=== PATIENT | male | born 1965 | race Caucasian/White ===

== ENCOUNTER 2022-02-08 09:18 | Outpatient (CLI) | payer OTHER, SELFPAY ==
--- NOTE | 2022-02-08 09:15 | RT.EKG_ITS ---
APPROVED REPORT Exam: Resting ECG Reason for Exam: chest discomfort Patient Location: O HR:103 bpm ECG Measurements Heart Rate 103 AXIS AZ 141 P 76 QRSd 92 QRS 61 QT 321 T 10 QTc 420 Conclusion Sinus tachycardia...rate> 99 Left atrial enlargement...P, P'>60mS, <-0.15mV V1 RSR' in V1 or V2, normal variant
== END 2022-02-08 09:19 | disposition home or self-care (01) ==
LOC: DI.CM 09:18
PROVIDERS: Visit Provider Nurse Practitioner Family
DX: R07.89 Other chest pain (principal); R94.31 Abnormal electrocardiogram [ECG] [EKG]
CPT/HCPCS: 93010

== ENCOUNTER 2022-02-08 10:03 | Emergency (ER) | payer OTHER, SELFPAY ==
--- NOTE | 2022-02-08 10:00 | RT.EKG_ITS ---
APPROVED REPORT Exam: Resting ECG Reason for Exam: chest pain Patient Location: E HR:102 bpm ECG Measurements Heart Rate 102 AXIS OR 144 P 75 QRSd 91 QRS 64 QT 314 T 7 QTc 409 Conclusion Sinus tachycardia Probable left atrial enlargement Nonspecific ST changes
--- NOTE | 2022-02-08 10:00 | DI.RAD_ITS ---
Exam(s) XR PORTABLE CHEST AP EXAM: XR PORTABLE CHEST AP CLINICAL HISTORY: chest pain TECHNIQUE: 2D digital imaging was performed of the chest. One image was obtained. An AP view was ob tained. COMPARISON: No exams were available for comparison FINDINGS: MEDIASTINUM: Normal. HEART: Normal. PULMONARY VASCULATURE: Normal. LUNGS: Clear. PLEURAL SPACE: No pleural effusion or pneumothorax. BONE:Within normal limits for the patient's age. OTHER FINDINGS:Normal. IMPRESSION: No acute pulmonary findings. DATA REPOSITORY: RADIATION DOSE DELIVERED:
[2022-02-08 10:10] VITALS: BP 163/91; PULSE 101; RESP 16; TEMP 36.7; O2SAT 99
[2022-02-08 10:15] VITALS: RESP 16
[2022-02-08 10:30] LABS: Abs Immature Grans 0.05 10^3/uL (0.0-0.06); Absolute Basophil Count 0.04 10^3/uL (0.0-0.2); Absolute Eosinophil Count 0.21 10^3/uL (0.0-0.7); Absolute Lymphocyte Count 1.04 10^3/uL (1.2-3.4); Absolute Monocyte Count 0.76 10^3/uL (0.1-0.8); Absolute Neutrophil Count 4.54 10^3/uL (1.2-6.7); Basophils % 0.6; Eosinophils % 3.2; HCT 44.7 % (40.0-50.0); HGB 15.2 g/dL (13.5-17.5); Immature Grans % 0.8; Lymphocytes % 15.7; MCH 29.3 pg (27.0-33.0); MCV 86 fL (80-95); MPV 9.5 fL (8.0-11.0); Monocytes % 11.4; Neutrophils % 68.3; Platelet Count 214 10^3/uL (130-400); RBC 5.18 10^6/uL (4.36-5.78); RDW-SD 38.2 fL; WBC 6.64 10^3/uL (4.4-10.8)
[2022-02-08 10:50] LABS: ALT 38 U/L (16-63); AST 24 U/L (15-37); Albumin 4.1 g/dL (3.4-5.0); Alkaline Phosphatase 61 U/L (46-116); Anion Gap 6.1 mmol/L (3-11); BUN 18 mg/dL (7-18); Bilirubin, Total 1.6 mg/dL (0.2-1.0); CO2 28.9 mmol/L (21.0-32.0); Calcium 8.8 mg/dL (8.5-10.1); Chloride 106 mmol/L (98-107); Estimated GFR 87.24 (mL/min/1.73m2); Glucose 116 mg/dL (74-106); Potassium 3.9 mmol/L (3.5-5.1); Sodium 141 mmol/L (136-145); Total Protein 7.5 g/dL (6.4-8.2); Troponin I < 50 ng/L (<or=60)
[2022-02-08 11:25] LABS: D-Dimer 298 ng/mlFEU (<500)
--- NOTE | 2022-02-08 12:11 | ED.GENADUL_ITS ---
Discharge Plan Disposition Patient Disposition: Home Condition: Stable Discharge Details Clinical Impression: Atypical chest pain, History of shingles Primary Care Provider: Meghan,Local ED Provider: Cassy Osorio Home Meds and New Rx's Prescriptions: Continued atorvastatin [Lipitor] 20 mg tablet 20 mg PO DAILY triamcinolone acetonide 0.1 % cream 1 applic topical BID PRN (Reason: rash) Qty: 30 0RF Rx Instructions: apply to affected area right pickett 2x daily as needed valacyclovir 1 gram tablet 1,000 mg PO TID Qty: 21 0RF Rx Instructions: Take 1000mg every 8 hours x 7 days Discharge Instructions Instructions: Shingles (ED) Additional Instructions: Until lesions crusted over, they are contagious Please refer to enclosed packet information May take ibuprofen and Tylenol as needed for discomfort Follow-up with your doctor when you arrive home Return earlier should you have new or worsening complaints Medical Decision Making This 56-year-old gentleman with history of hyperlipidemia presents with chest pain for the past 10 days, constant in the past 5 Initially presented as a burning sensation to the left chest patient describes it as muscular pain EKG does not show evidence of acute abnormality, chest x-ray does not show evidence of acute abnormality Initial troponin negative Suspect thoracic shingles Patient is past the 72-hour moustapha, no indication for Valtrex at this time Low suspicion for cardiac etiology of patient's complaints Return precautions reviewed and patient expressed understanding Medical Records Medical records reviewed: Yes I reviewed the patient's medical records. Lab Data Lab results reviewed: Yes I reviewed the patient's lab results. HPI General Date/Time Provider Initiated Documentation: 02/08/22 10:04 . HPI Narrative: This 56-year-old male presents with report of chest pain for the past 10 days intermittently at first starting with a rash 5 days ago. He states that the pain feels like it is muscular in an aching sensation with numbness. Denies any shortness of breath, diaphoresis, nausea or vomiting. He denies any known early family history of coronary artery disease. He does not smoke, drink, or use any illicit drugs. He denies any associated pleuritic chest pain, calf pain or swelling. Related Data Home Medications Medication Instructions Recorded Confirmed atorvastatin 20 mg tablet (Lipitor) 20 mg PO DAILY 02/08/22 02/08/22 triamcinolone acetonide 0.1 % 1 applic topical BID PRN rash #30 02/08/22 02/08/22 topical cream grams valacyclovir 1 gram tablet 1,000 mg PO TID #21 tabs 02/08/22 02/08/22 Previous Rx's Medication Instructions Recorded triamcinolone acetonide 0.1 % 1 applic topical BID PRN rash #30 02/08/22 topical cream grams valacyclovir 1 gram tablet 1,000 mg PO TID #21 tabs 02/08/22 Allergies Allergy/AdvReac Type Severity Reaction Status Date / Time No Known Allergies Allergy Verified 02/08/22 10:17 General Stated Complaint: Chest Pain BLAS: 3 Review of Systems All systems reviewed & are unremarkable except as noted in HPI and below PFSH All Active Problems (Updated 02/08/22 @ 12:14 by HEIDI Murillo) Atypical chest pain (Acute) History of shingles (Acute) Social History Smoking/Tobacco Use Status: Never Smoking risk assessment performed?: Yes Alcohol Intake: never Drug use: Never Substance use type: does not use Do you feel safe at home: Yes Do you feel safe in your relationship?: Yes Exam Const General: cooperative, comfortable and no acute distress HENMT Head: normal to inspection Chest Chest/axillae images: 1. vesicles noted Resp Effort & Inspection: normal respiratory effort Auscultation: clear to auscultation bilaterally Cardio Rate: regular rate Rhythm: regular rhythm Other: distal pulses intact GI Inspection: normal to inspection Skin Rashes: rashes noted Neuro General: patient alert and patient oriented x3 Course Vital Signs Vital signs: Vital Signs Temperature 36.7 C 02/08/22 10:10 Pulse 101 H 02/08/22 10:10 Respiratory Rate 16 02/08/22 10:10 Blood Pressure 163/91 H 02/08/22 10:10 Pulse Oximetry 99 02/08/22 10:10 Temperature 36.7 C 02/08/22 10:10 Temperature Source Temporal Artery Scan 02/08/22 10:10 Pulse 101 H 02/08/22 10:10 Respiratory Rate 16 02/08/22 10:15 Respiratory Effort Non-Labored 02/08/22 10:15 Respiratory Depth Normal 02/08/22 10:15 Respiratory Pattern Normal 02/08/22 10:15 Blood Pressure 163/91 H 02/08/22 10:10 Blood Pressure Position Supine 02/08/22 10:10 Pulse Oximetry 99 02/08/22 10:10 Oxygen Delivery Method Room Air 02/08/22 10:10 Oxygen Flow Rate 0 02/08/22 10:10 Pain Level 3 02/08/22 10:15 Lab/Test Results Lab/Test Results: Laboratory Tests Range/Units 02/08/22 02/08/22 02/08/22 10:25 10:25 10:50 WBC (4.4-10.8) 10^3/uL 6.64 RBC (4.36-5.78) 10^6/uL 5.18 Hgb (13.5-17.5) g/dL 15.2 Hct (40.0-50.0) % 44.7 MCV (80-95) fL 86 MCH (27.0-33.0) pg 29.3 MCHC (32.0-36.0) % 34.0 RDW (11.8-14.1) % 12.0 Plt Count (130-400) 10^3/uL 214 MPV (8.0-11.0) fL 9.5 Immature Gran % 0.8 Neutrophils % 68.3 Lymphocytes % 15.7 Monocytes % 11.4 Eosinophils % 3.2 Basophils % 0.6 Nucleated RBC % (0.0-0.3) % 0.0 Absolute Neutrophils (1.2-6.7) 10^3/uL 4.54 Absolute Lymphocytes (1.2-3.4) 10^3/uL 1.04 L Absolute Monocytes (0.1-0.8) 10^3/uL 0.76 Absolute Eosinophils (0.0-0.7) 10^3/uL 0.21 Absolute Basophils (0.0-0.2) 10^3/uL 0.04 D-Dimer (<500) ng/mlFEU 298 Sodium (136-145) mmol/L 141 Potassium (3.5-5.1) mmol/L 3.9 Chloride (98-107) mmol/L 106 Carbon Dioxide (21.0-32.0) mmol/L 28.9 Anion Gap (3-11) mmol/L 6.1 BUN (7-18) mg/dL 18 Creatinine (0.70-1.30) mg/dL 1.0 Est GFR (CKD-EPI 2020) (mL/min/1.73m2) 87.24 Glucose (74-106) mg/dL 116 H Calcium (8.5-10.1) mg/dL 8.8 Magnesium (1.8-2.4) mg/dL 2.0 Total Bilirubin (0.2-1.0) mg/dL 1.6 H AST (15-37) U/L 24 ALT (16-63) U/L 38 Alkaline Phosphatase (46-116) U/L 61 Troponin I (<or=60) ng/L < 50 Total Protein (6.4-8.2) g/dL 7.5 Albumin (3.4-5.0) g/dL 4.1
[2022-02-08 12:15] VITALS: BP 147/93; PULSE 82; RESP 16; O2SAT 96
== END 2022-02-08 12:22 | disposition home or self-care (01) ==
PROVIDERS: Emergency Provider Physician Assistant
DX: R07.89 Other chest pain (principal); R23.8 Other skin changes; Z86.19 Personal history of other infectious and parasitic diseases
CPT/HCPCS: 36415; 80053; 93005; 99283; 71045; 83735; 84484; 85025; 85379; 93010; 99284

== ENCOUNTER 2024-04-04 00:40 | Outpatient (CLI) | payer MEDICAID, SELFPAY ==
[2024-04-04 12:30] LABS: Abs Immature Grans 0.02 10^3/uL (0.0-0.06); Absolute Basophil Count 0.08 10^3/uL (0.0-0.2); Absolute Eosinophil Count 0.22 10^3/uL (0.0-0.7); Absolute Lymphocyte Count 1.01 10^3/uL (1.2-3.4); Absolute Monocyte Count 0.66 10^3/uL (0.1-0.8); Absolute Neutrophil Count 5.25 10^3/uL (1.2-6.7); Basophils % 1.1 %; HCT 48.1 % (40.0-50.0); HGB 15.9 g/dL (13.5-17.5); Immature Grans % 0.3 %; MCH 29.8 pg (27.0-33.0); MCHC 33.1 % (32.0-36.0); MCV 90 fL (80-95); MPV 10.5 fL (8.0-11.0); Monocytes % 9.1 %; Neutrophils % 72.5 %; Platelet Count 236 10^3/uL (130-400); RBC 5.34 10^6/uL (4.36-5.78); RDW 12.5 % (11.8-14.1); RDW-SD 41.2 fL; WBC 7.24 10^3/uL (4.4-10.8)
[2024-04-04 12:58] LABS: ALT 36 U/L (16-63); AST 27 U/L (15-37); Albumin 4.4 g/dL (3.4-5.0); Alkaline Phosphatase 61 U/L (46-116); Anion Gap 9.4 mmol/L (3-11); BUN 16 mg/dL (7-18); Bilirubin, Total 2.35 mg/dL (0.2-1.0); CO2 27.6 mmol/L (21.0-32.0); Calcium 9.4 mg/dL (8.5-10.1); Calculated LDL 81 mg/dL (<100); Chloride 106 mmol/L (98-107); Cholesterol 147 mg/dL (<200); Estimated GFR 86.16 (mL/min/1.73m2); Glucose 110 mg/dL (74-106); HDL Cholesterol 46 mg/dL (40-60); Hemoglobin A1C 5.5 % (<5.7); Sodium 143 mmol/L (136-145); TSH (W/Ref FT4) 2.08 uIU/mL (0.36-3.74); Total Protein 7.9 g/dL (6.4-8.2); Triglyceride 100 mg/dL (<150)
[2024-04-04 19:28] LABS: PSA, Screening 2.6 ng/mL (<=4.5)
[2024-04-06 09:42] LABS: HIV-1/2 Ag & Ab Screen Negative (Negative)
[2024-04-07 10:42] LABS: HBs Antibody, Quant 51.9 mIU/mL (See Note); Hep B Surface Ab Positive (See Note); Hepatitis B Core Antibody Negative (Negative); Hepatitis B Surface Antigen Negative (Negative)
[2024-04-07 10:47] LABS: Hepatitis C Ab w Rflx HCV PCR Negative (Negative)
== END 2024-04-04 00:41 | disposition home or self-care (01) ==
LOC: LOS 00:40
PROVIDERS: PCP Nurse Practitioner Family; Visit Provider Nurse Practitioner Family
DX: E78.5 Hyperlipidemia, unspecified (principal); Z12.5 Encounter for screening for malignant neoplasm of prostate; Z11.4 Encounter for screening for human immunodeficiency virus [HIV]; Z11.59 Encounter for screening for other viral diseases
CPT/HCPCS: 36415; 80053; 80061; 84153; 86704; 86706; 86803; 87340; 87389; 83036; 84443; 85025

== ENCOUNTER 2024-09-18 15:08 | Outpatient (CLI) | payer MEDICAID, SELFPAY ==
[2024-09-18 15:06] LABS: Abs Immature Grans 0.06 10^3/uL (0.0-0.06); HCT 45.1 % (40.0-50.0); HGB 15.2 g/dL (13.5-17.5); Immature Grans % 0.7 %; MCH 29.5 pg (27.0-33.0); MCHC 33.7 % (32.0-36.0); MCV 87 fL (80-95); MPV 9.5 fL (8.0-11.0); Platelet Count 215 10^3/uL (130-400); RBC 5.16 10^6/uL (4.36-5.78); RDW 12.2 % (11.8-14.1); RDW-SD 39.0 fL; WBC 9.06 10^3/uL (4.4-10.8)
[2024-09-18 15:56] LABS: ALT 27 U/L (16-63); AST 20 U/L (15-37); Albumin 4.2 g/dL (3.4-5.0); Alkaline Phosphatase 64 U/L (46-116); Anion Gap 9.7 mmol/L (3-11); BUN 14 mg/dL (7-18); Bilirubin, Total 2.2 mg/dL (0.2-1.0); CO2 27.3 mmol/L (21.0-32.0); Calcium 9.0 mg/dL (8.5-10.1); Chloride 103 mmol/L (98-107); Estimated GFR 97.78 (mL/min/1.73m2); Glucose 131 mg/dL (74-106); Potassium 4.0 mmol/L (3.5-5.1); Sodium 140 mmol/L (136-145); Total Protein 7.4 g/dL (6.4-8.2)
== END 2024-09-18 15:09 | disposition home or self-care (01) ==
LOC: LBO 15:08
PROVIDERS: PCP Nurse Practitioner Family; Visit Provider Nurse Practitioner Family
DX: R10.9 Unspecified abdominal pain (principal)
CPT/HCPCS: 36415; 80053; 85025

== ENCOUNTER 2024-09-22 01:32 | Outpatient (CLI) | payer MEDICAID, SELFPAY ==
--- NOTE | 2024-09-22 06:00 | DI.CT_ITS ---
Exam(s) CT ABDOMEN PELVIS WO EXAM: CT ABDOMEN PELVIS WO CLINICAL HISTORY: bilateral flank pain, lower abd pain,R10.9. TECHNIQUE: Imaging Protocol: Axial computed tomography images with coronal and sagittal reformatted images were created and reviewed. Oral: no COMPARISON: No exams were available for comparison FINDINGS: Lung Bases: No acute findings. Liver: Normal density. No suspicious mass. Gallbladder and biliary tract: Small stones noted in the dependent portion of the gallbladder. No biliary dilation. Pancreas: Normal density. No abnormal calcifications or inflammatory process. Spleen: Normal. Kidneys: Normal size, contour and axis. There are multiple bilateral nonobstructing renal calculi. No obstructive uropathy. No suspicious masses seen. Adrenal glands: No masses seen. Lymph nodes: Within normal limits. Vasculature: Abdominal aorta non-dilated. Soft tissues: Unremarkable. Bladder: Nearly empty. No wall thickening. No mass or calculi. Bowel: No obstruction or bowel wall thickening. Diverticulosis of the descending and sigmoid colon. The appendix appears normal. Peritoneal cavity: No ascites. No focal collection. No mesenteric inflammatory response. Reproductive organs: Unremarkable. Bones: Unremarkable for age. IMPRESSION: Bilateral nonobstructing renal calculi. Diverticulosis. No acute abnormality in the abdomen or pelvis. RADIATION DOSE DELIVERED: 481.7mGy.cm Total DLP DATA REPOSITORY: All CT scans at this facility are submitted to the National Radiology Data Registry (NRDR) Dose Index Registry (DIR) with the [employer] ([employer]). RADIATION OPTIMIZATION: All CT scans at this facility use at least one of these dose optimization techniques: automated exposure control; mA and/or kV adjustment per patient size (includes targeted exams where dose is matched to clinical indication); or iterative reconstruction.
== END 2024-09-22 01:52 ==
LOC: DI 01:33
PROVIDERS: PCP Nurse Practitioner Family; Visit Provider Nurse Practitioner Family
DX: R10.9 Unspecified abdominal pain (principal)
CPT/HCPCS: 74176